=== PATIENT | male | born 1995 | race Two or more races ===

== ENCOUNTER 2018-11-18 19:44 | Emergency (ER) | payer OTHER ==
[2018-11-18 19:49] VITALS: BP 126/75
[2018-11-18] MEDS ORDERED: TDAP ADULT 0.5 ML INJ (BOOSTRIX) IM ONE (19:57)
--- NOTE | 2018-11-18 20:05 | EDPHY ---
General Time Seen by Provider: 11/18/18 20:05 Narrative: CLINICAL IMPRESSION: Left middle finger laceration ASSESSMENT/PLAN: Patient is a 23-year-old male with no significant medical history who presents to the emergency department after sustaining a laceration to his left middle finger. Patient is not toxic appearing, he is in no distress. Physical examination reveals a 1.5 cm laceration overlying the dorsal aspect of his left middle finger, distal interphalangeal joint. There is no evidence of deep structure involvement, neurovascular compromise, foreign body, or bony involvement. The wound was not contaminated, tetanus status was updated today. The wound was irrigated and then repaired as discussed in the procedure note, the patient tolerated this well. Wound care instructions discussed with patient and family member. This did happen at work, he will follow up with workman's Comp. He will return to the emergency department in 7-10 days for suture removal or sooner if he has wound concerns. Return precautions discussed- he will return for increased pain, signs of infection, fever, vomiting, if the wound opens or for any other concerns. Patient verbalizes understanding and is in agreement with plan. DIFFERENTIAL DIAGNOSIS: includes but not limited to laceration of tendon or vascular structure, underlying fracture, laceration with retained FB ED PROCEDURES: Laceration Repair Verbal consent obtained by patient. Risks discussed, including but not limited to infection, pain, retained foreign body, need for additional repair, poor cosmetic result, tendon damage, nerve damage, poor wound healing, vascular damage. Alternatives to repair discussed. [place] protocol used to establish correct patient, procedure, equipment, student support services director, and site. Anesthesia obtained by local infiltration. Anesthetized with 1% lidocaine with epinephrine. Laceration location dorsal aspect of the left middle finger overlying the distal interphalangeal joint, length 1.5 cm, depth 3 mm, Repair type simple. Patient was prepped and draped in usual sterile fashion. Hemostasis achieved with direct pressure. Wound explored through full range of motion and entire depth of wound probed and visualized with gloved finger. No suspicion for nerve damage, tendon damage, underlying fracture, vascular damage, foreign body, or contamination. Area was cleansed with Shur-Clens and irrigated with sterile saline as per protocol. No foreign body or material removed. Repair method 5.0 Prolene interrupted. For sutures placed. Well aligned, closely approximated. wound was dressed with antibiotic ointment, dressing and splint. Patient tolerated well with no immediate complications. Wound care: Clean and dry x 24 hours, gently clean with soap and water, cover with topical antibiotic ointment/bandage. 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 Patient is right handed, he was cutting a piece of meat when he accidentally lacerated the top of his left middle finger. Was able to get the bleeding under control, complains only of pain of that location. He has been able to move the finger without difficulty, he denies any numbness or tingling of the digit. He is right-hand dominant, he is not up-to-date on his tetanus status. He denies any other concern or complaint. PAST MEDICAL HISTORY: Denies Pertinent Past Surgical History: Denies Social History: Occasional alcohol, light smoker, denies illicit drug use REVIEW OF SYSTEMS: All other systems negative Constitutional: No fever, no chills Musculoskeletal: No deformity, no joint pain Skin: Left middle finger laceration Neurological: No sensory loss or weakness. PHYSICAL EXAM: General Appearance: Alert, oriented, appropriate for age, cooperative, NAD, well hydrated, non-toxic appearing, VSS, no hypoxia. Neurological: Alert and oriented x 3 Skin: Warm and dry. 1.5 cm laceration overlying the distal interphalangeal joint on the dorsal aspect of the left middle finger Upper Extremities: Right upper extremity is unremarkable. Intact distal pulses , Full range of motion intact, no tenderness, no ecchymosis or edema. Left middle finger reveals a 1 cm laceration across the dorsal aspect of his distal interphalangeal joint. Each interphalangeal joint was tested independently with full strength. Two point discrimination is intact distally. Left upper extremity is otherwise unremarkable. Lower Extremities: Intact distal pulses, No edema, No tenderness, No cyanosis, full range of motion intact, No calf tenderness bilaterally. MEDICAL DECISION MAKING: Patient was seen independently. Secondary supervising physician at time of evaluation was Dr. Calero, he did not evaluate this patient. Diagnosis: Left middle finger laceration. Summary: See assessment and plan for summary of ED visit Clinical lab tests: Not applicable. Independent visualization of images, tracing, or specimens: Not applicable. Decision to obtain medical records or history from someone other than the patient: No Review / Summarize previous medical records: Yes Disposition: Stable, home - History Smoking Status: Light smoker - Objective Vital Signs: Initial Vital Signs Temperature (C) 36.9 C 11/18/18 19:48 Heart Rate 83 11/18/18 19:48 Respiratory Rate 16 11/18/18 19:48 Blood Pressure 126/75 H 11/18/18 19:48 O2 Sat (%) 96 11/18/18 19:48 O2 Delivery Mode Room Air Allergies/Adverse Reactions: No Known Allergies Allergy (Unverified 11/18/18 19:47) Home Medications: Medication Instructions Recorded NK [No Known Home Meds] 05/15/16 Medications Given: Discontinued Medications Diphtheria/Tetanus/Acell Pertussis (Boostrix) 0.5 ml IM .ONCE ONE Stop: 11/18/18 19:58 Last Admin: 11/18/18 20:05 Dose: 0.5 ml Departure - Departure Disposition: Home, Routine, Self-Care Clinical Impression: Finger laceration Condition: Good Instructions: Laceration (ED) Additional Instructions: DISCHARGE INSTRUCTIONS FROM YOUR DOCTOR Thank you for visiting our emergency department today. Please keep in mind that discharge from the emergency department does not mean that there is nothing wrong - it simply means that we have not identified an emergency condition that requires further evaluation or treatment in the hospital. You should always plan to follow up with primary care for re-evaluation of your condition in the next 2-3 days. Be sure to contact your workman's Comp to notify them of this injury. Follow- up as they direct. Keep wound clean and dry for 24 hours. Then remove dressing, clean at least twice daily or when soiled with soap and water, apply antibiotic ointment and dressing. Do not soak the wound while the stitches are in place. Elevate hand as much as possible for the next 24 hours to decrease the swelling and pain. Wear the splint to immobilize the finger for the next 2-5 days to facilitate rapid healing. Anticipate suture removal in 7-10 days. For pain control: You may take Tylenol, I recommend 500-1000 mg every 6-8 hours as needed. Take with food and a full glass of water. Stop taking if this is upsetting her stomach. Do not exceed 4000 mg in a 24 hr period. You may also take ibuprofen, recommend 400 mg every 6 hr. Take with food and a full glass of water. Stop taking if this upsets her stomach. Do not exceed 2400 mg in a 24 hr period. As discussed the laceration was not deep enough to visualize the tendon today. It is unlikely a tendon injury is present and your tendon function is currently intact. However, if at any time, you feel a pop and have difficulty bending or straightening the finger, you should seek re-evaluation from a hand specialist urgently. Return for signs of wound infection ie: redness, swelling, drainage, foul odor, red streaks, fever, chills, pain, bleeding, if the stitches pop, if the wound opens, for numbness, tingling, weakness, discoloration of the finger, coolness of the finger, inability to move or bend the finger or for any other new, worsening or worrisome symptoms. People present with illnesses and injuries in different ways, and it is always possible that we have missed something. You may always return for re-evaluation if symptoms worsen or if they are not improving or if you develop new/different symptoms. Again, thank you for choosing our emergency department. We hope that you feel better. Referrals: Eliza Rendon MD [Medical Doctor] - As per Instructions (Establish care with a primary care provider if you do not already have 1)
== END 2018-11-18 21:25 | disposition home or self-care (01) ==
PROC: 0HQGXZZ Repair Left Hand Skin, External Approach (ICD-10-PCS; principal; 2018-11-18)
DX: S61.213A Laceration without foreign body of left middle finger without damage to nail, initial encounter (principal); Z23 Encounter for immunization; W26.0XXA Contact with knife, initial encounter; Y93.G1 Activity, food preparation and clean up; Y99.0 Civilian activity done for income or pay
CPT/HCPCS: L3925